=== PATIENT | female | born 1940 | race Caucasian/White ===

== ENCOUNTER 2021-08-20 09:26 | Outpatient (REF) | payer MEDICARE, SELFPAY ==
--- NOTE | 2021-08-20 12:30 | MHC.AU.AEV ---
Adult Audiological Evaluation Date of Visit: 08/20/21 Reason for Appointment: Patient has been experiencing gradually increasing hearing difficulty over the last few years. She has experienced difficulty hearing family at home as well as difficulty hearing in noisier settings. She has been using a set of hearing instruments (likely personal amplifiers based on description) but does not feel they have been meeting her needs. Does patient feel they have a hearing loss?: Yes If Yes, Which Ear?: Both Ears When Was Hearing Difficulty First Noticed?: Over the past few years Hearing Handicap Inventory Does a hearing problem cause you to feel embarrassed when meeting new people?: Sometimes Does a hearing problem cause you to feel frustrated when talking to members of your family?: Sometimes Do you have difficulty when someone speaks in a whisper?: Yes Do you feel handicapped by a hearing problem?: Sometimes Does a hearing problem cause you difficulty when visiting friends, relatives, or neighbors?: Sometimes Does a hearing problem cause you to attend congregational service services less often than you would like?: Sometimes Does a hearing problem cause you to have arguments with family members?: Sometimes Does a hearing problem cause you difficulty when listening to TV or radio?: Yes Do you feel that any difficult with your hearing limits or hampers your personal or social life?: Yes Does a hearing problem cause you difficulty when in a restaurants with relatives or friends?: Yes HHIE SCORE: 28 Based on HHIE score, patient has: Severe perceived hearing handicap Ear History: Ear Deformity: None Reported Recent Ear Drainage: None Reported Recent Ear Pain: None Reported Family History of Hearing Loss?: Yes: Mother Recent Ear Infections: None Reported Ear Infections in Childhood: None Reported History of Ear Wax Buildup: None Reported Previous Ear Surgery: None Reported Bothersome Tinnitus/Ringing/Noises in Ears: None Reported Ear used on the phone: Right Ear Blocked/Full Sensation in Ear(s): None Reported History of occupational noise exposure?: No History: No Medical History: Medical History: Breast Cancer in 2018- Was treated surgically, no chemotherapy or radiation needed. Hypertension. Chronic Kidney Disease. Otoscopy: Right Ear: Unremarkable Left Ear: Unremarkable Tympanometry: Tympanometry performed due to: To assess integrity of the middle ear system Right Ear: Normal Middle Ear System (Type A) Left Ear: Normal Middle Ear System (Type A) Hearing Evaluation: Transducer(s) Used: Insert Earphones Method: Conventional Audiometry Stimuli Used: Pure Tones Right Ear: Description of Hearing: Moderate to moderately-severe sensorineural hearing loss Left Ear: Description of Hearing: Moderate to moderately-severe sensorineural hearing loss Speech Recognition Threshold (SRT): Method Used: Recorded Lists Stimuli Used: Spondee Words Right Ear: 50 dBHL Left Ear: 45 dBHL Word Discrimination: Method: Recorded Lists Word Lists Used:: W-22 Right Ear: 88% at 90 dBHL Left Ear: 68% at 85 dBHL Most Comfortable Level (MCL): Right Ear: 90 dBHL Left Ear: 85 dBHL QuickSIN: 7 dB SNR Loss, which suggests mild-moderate difficulty listening in noise Interpretation of Results: Patient presents with moderate to moderately-severe sensorineural hearing loss. Patients with this degree of hearing loss likely have difficulty understanding speech at normal conversational volumes. Sounds that may be particularly difficult to hear include /s/, /sh/, /th/, /f/, /k/, /p/, /h/, /ch/, /z/, and /v/. This can lead to misunderstandings (ex. the words mouth and mouse may sound similar). It is likely more difficult to hear in the presence of background noise or if the person talking is not directly in front of the listener. Recommendations: Audiological re-evaluation in one year. Patient reports that she purchased a set of hearing instruments in the mail from a company in [place]. Patient never had to submit a hearing test to this company or do a screening before receiving them, which suggests they are likely personal amplifiers rather than hearing aids. She does not feel they have been meeting her needs. The patient is not a good candidate for personal amplifiers or [id number]-[id number] hearing aids, as those are intended for people with mild to moderate hearing loss. Her moderate to moderately-severe hearing loss falls outside of this range. If the device is not able to amplify sound loud enough to cover a moderate/moderately-severe hearing loss, then it may be blocking the ear more than it is helping. Patient believes her insurance may have hearing aid benefits. It is recommended that the patient contact her insurance company to inquire about hearing aid benefits or discount programs. They would also be able to help locate a clinic that accepts their benefits. At this time, our clinic is unable to accept hearing aid benefits from her insurance. Diagnosis: Primary Diagnosis: H90.3 Bilateral Sensorineural Hearing Loss Signature: Provider: Edmund Moody, CCC-A
== END 2021-08-20 09:27 | disposition home or self-care (01) ==
LOC: HO.SH 09:26
PROVIDERS: Visit Provider Internal Medicine
DX: H90.3 Sensorineural hearing loss, bilateral (principal)
CPT/HCPCS: 92557; 92567

== ENCOUNTER 2022-02-06 10:01 | Outpatient (REF) | payer MEDICARE, SELFPAY ==
[2022-02-06 11:37] LABS: Appearance Urine HAZY; Color Urine YELLOW; Glucose Urine UA NEG (NEG); Leukocyte Esterase Urine 1+ (NEG); Nitrite Urine NEG (NEG); PH 5.5 (5.0-8.0); Specific Gravity - Urine >= 1.030 (1.005-1.025); Urine Blood NEG (NEG); Urine Ketones 5 MG/DL (NEG); Urine Protein TRACE MG/DL (NEG-TRACE)
[2022-02-06 11:37] LABS: Hematocrit 40.2 % (37.0-47.0); Hemoglobin 13.3 g/dl (12.0-16.0); Mean Corpuscular HGB Conc 33.1 g/dl (31.0-35.0); Mean Corpuscular Hemoglobin 31.2 pg (27.0-33.0); Mean Corpuscular Volume 94.4 fL (80.0-98.0); Mean Platelet Volume 10.2 fL (9.4-12.3); Platelet Count 285 X10*3/uL (160-400); Red Blood Count 4.26 X10*6/uL (4.20-5.50); Red Cell Distribution Width 12.9 % (11.0-16.0); White Blood Count 7.4 X10*3/uL (4.8-10.8)
[2022-02-06 12:20] LABS: Mucus Urine 2+ /LPF; Squamous Epithelial Cell Urine 1+ /LPF
[2022-02-06 12:21] LABS: Calcium Oxalate Crystals Urine 1+ /LPF; RBC Urine 0-2 /HPF (0)
[2022-02-06 12:22] LABS: TSH reflex Free T4 1.56 uIU/mL (0.32-4.0)
[2022-02-06 12:26] LABS: Alanine Aminotransferase 18 U/L (0-31); Albumin Level 4.5 g/dL (3.5-5.0); Alkaline Phosphatase 92 U/L (39-117); Anion Gap 12 (12-20); Aspartate Amino Transferase 21 U/L (5-31); Bilirubin Total 1.2 mg/dL (0.0-1.0); Blood Urea Nitrogen 24 mg/dL (9-16); Calcium 9.6 mg/dL (8.4-10.2); Carbon Dioxide 26 mmol/L (22-29); Chloride 105 mmol/L (96-108); Cholesterol 179 mg/dL; Estimated Glomerular Filt Rate 56; Glucose Fasting 89 mg/dL (60-99); HDL Cholesterol 41 mg/dL; LDL Cholesterol Calculated 99 mg/dl; Potassium 4.2 mmol/L (3.3-5.1); Sodium 139 mmol/L (135-145); Total Protein 7.4 g/dL (6.5-8.0); Triglycerides 195 mg/dL
== END 2022-02-06 10:02 | disposition home or self-care (01) ==
LOC: HO.HMGCLDS 10:01
PROVIDERS: Visit Provider Internal Medicine
DX: E78.5 Hyperlipidemia, unspecified (principal); F32.9 Major depressive disorder, single episode, unspecified; I12.9 Hypertensive chronic kidney disease with stage 1 through stage 4 chronic kidney disease, or unspecified chronic kidney disease; N18.30 Chronic kidney disease, stage 3 unspecified; C50.919 Malignant neoplasm of unspecified site of unspecified female breast
CPT/HCPCS: 36415; 80053; 80061; 81001; 84443; 85027

== ENCOUNTER 2023-03-17 09:32 | Outpatient (REF) | payer MEDICARE, SELFPAY ==
[2023-03-17 11:20] LABS: MANUAL DIFF FLAG NO
[2023-03-17 11:38] LABS: Basophils Absolute Auto 0.1 X10*3/uL (0.0-0.2); Basophils Percent Auto 1.1 % (0-2); Eosinophils Absolute Auto 0.2 X10*3/uL (0.0-0.4); Eosinophils Percent Auto 2.6 % (0-4); Hematocrit 40.1 % (37.0-47.0); Hemoglobin 13.2 g/dl (12.0-16.0); Imm Gran Abs Auto 0.02 X10*3/uL (0.00-0.03); Imm Gran Pct Auto 0.3 % (0.0-0.4); Lymphocytes Absolute Auto 2.4 X10*3/uL (1.2-4.9); Lymphocytes Percent Auto 34.2 % (20-40); Mean Corpuscular HGB Conc 32.9 g/dl (31.0-35.0); Mean Corpuscular Hemoglobin 30.6 pg (27.0-33.0); Mean Platelet Volume 9.7 fL (9.4-12.3); Monocytes Absolute Auto 0.4 X10*3/uL (0.1-1.2); Neutrophils Absolute Auto 3.9 x10*3/uL (2.0-8.3); Neutrophils Percent Auto 55.8 % (45-73); Platelet Count 257 X10*3/uL (160-400); Red Blood Count 4.31 X10*6/uL (4.20-5.50); Red Cell Distribution Width 13.2 % (11.0-16.0)
[2023-03-17 11:51] LABS: Alanine Aminotransferase 17 U/L (0-31); Albumin Level 4.2 g/dL (3.5-5.0); Alkaline Phosphatase 93 U/L (39-117); Anion Gap 10 (12-20); Aspartate Amino Transferase 20 U/L (5-31); Bilirubin Total 1.2 mg/dL (0.0-1.0); Blood Urea Nitrogen 16 mg/dL (9-16); Calcium 9.2 mg/dL (8.4-10.2); Carbon Dioxide 28 mmol/L (22-29); Chloride 109 mmol/L (96-108); Cholesterol 177 mg/dL; Estimated Glomerular Filt Rate 55; Glucose Fasting 94 mg/dL (60-99); HDL Cholesterol 45 mg/dL; LDL Cholesterol Calculated 102 mg/dl; Sodium 143 mmol/L (135-145); Total Protein 6.8 g/dL (6.5-8.0); Triglycerides 152 mg/dL
[2023-03-17 12:11] LABS: TSH reflex Free T4 1.14 uIU/mL (0.32-4.0)
== END 2023-03-17 09:33 | disposition home or self-care (01) ==
LOC: HO.HMGCLDS 09:32
PROVIDERS: PCP Internal Medicine; Visit Provider Internal Medicine
DX: I12.9 Hypertensive chronic kidney disease with stage 1 through stage 4 chronic kidney disease, or unspecified chronic kidney disease (principal); E78.5 Hyperlipidemia, unspecified; N18.30 Chronic kidney disease, stage 3 unspecified; M81.0 Age-related osteoporosis without current pathological fracture
CPT/HCPCS: 36415; 80053; 80061; 84443; 85025

== ENCOUNTER 2024-03-20 07:42 | Outpatient (REF) | payer MEDICARE, SELFPAY ==
[2024-03-20 11:26] LABS: Basophils Absolute Auto 0.1 X10*3/uL (0.0-0.2); Basophils Percent Auto 1.1 % (0-2); Eosinophils Absolute Auto 0.3 X10*3/uL (0.0-0.4); Eosinophils Percent Auto 3.8 % (0-4); Hematocrit 37.9 % (37.0-47.0); Hemoglobin 12.5 g/dl (12.0-16.0); Imm Gran Abs Auto 0.02 X10*3/uL (0.00-0.03); Imm Gran Pct Auto 0.2 % (0.0-0.4); Lymphocytes Absolute Auto 2.6 X10*3/uL (1.2-4.9); Lymphocytes Percent Auto 31.5 % (20-40); MANUAL DIFF FLAG NO; Mean Corpuscular Hemoglobin 31.3 pg (27.0-33.0); Mean Corpuscular Volume 94.8 fL (80.0-98.0); Monocytes Absolute Auto 0.6 X10*3/uL (0.1-1.2); Neutrophils Absolute Auto 4.7 x10*3/uL (2.0-8.3); Neutrophils Percent Auto 56.4 % (45-73); Platelet Count 234 X10*3/uL (160-400); Red Cell Distribution Width 13.2 % (11.0-16.0); White Blood Count 8.3 X10*3/uL (4.8-10.8)
[2024-03-20 12:06] LABS: Alanine Aminotransferase 16 U/L (0-31); Albumin Level 4.1 g/dL (3.5-5.0); Alkaline Phosphatase 107 U/L (39-117); Anion Gap 12 (12-20); Aspartate Amino Transferase 23 U/L (5-31); Bilirubin Total 0.8 mg/dL (0.0-1.0); Blood Urea Nitrogen 17 mg/dL (9-16); Carbon Dioxide 27 mmol/L (22-29); Chloride 107 mmol/L (96-108); Cholesterol 168 mg/dL (<200); Estimated Glomerular Filt Rate > 60; Glucose Fasting 87 mg/dL (60-99); HDL Cholesterol 43 mg/dL (>40); LDL Cholesterol Calculated 90 mg/dL (<100); Potassium 3.7 mmol/L (3.3-5.1); Sodium 142 mmol/L (135-145); Total Protein 6.8 g/dL (6.5-8.0); Triglycerides 177 mg/dL (<150)
[2024-03-20 12:24] LABS: Vitamin D 25-OH Total 58.7 ng/mL (>30)
== END 2024-03-20 07:43 | disposition home or self-care (01) ==
LOC: HO.HMGCLDS 07:42
PROVIDERS: PCP Internal Medicine; Visit Provider Internal Medicine
DX: M81.0 Age-related osteoporosis without current pathological fracture (principal); I12.9 Hypertensive chronic kidney disease with stage 1 through stage 4 chronic kidney disease, or unspecified chronic kidney disease; N18.30 Chronic kidney disease, stage 3 unspecified; E78.5 Hyperlipidemia, unspecified; E55.9 Vitamin D deficiency, unspecified
CPT/HCPCS: 36415; 80053; 80061; 82306; 85025

== ENCOUNTER 2024-03-23 08:56 | Outpatient (AMB) | payer MEDICARE, SELFPAY ==
[2024-03-23 08:58] VITALS: BP 138/66; PULSE 74; O2SAT 98; BMI 22.8
--- NOTE | 2024-03-23 08:58 | AM.OFFVISMDC ---
Intake Vital Signs 03/23/24 08:58 Height 4 ft 11 in Weight 113 lb BMI 22.8 BP 138/66 Blood Pressure Location Rt brachial Position Sitting Pulse 74 Pulse Source Pulse Oximeter Pulse Oximetry (%) 98 Oxygen Delivery Method Room Air Intake Visit Reasons: SWV [id number] Allergies lisinopril Adverse Reaction (Unknown, Verified 03/23/24 09:02) cough Medication List - Last Reconciled 03/23/24 by Christina Conner MD fluoxetine 40 mg PO DAILY omeprazole 20 mg PO DAILY simvastatin 10 mg PO DAILY telmisartan 40 mg PO DAILY HPI SWV [id number] HPI Details Initiated the conversation about Advanced Directives. Advanced Directives help? patients prepare for current and future decisions about their medical treatment? and place of care. Discussed with patient that it is a process where a patients? current condition and prognosis are reviewed, their wishes for information? regarding their illness are elicited, and likely medical dilemmas are presented? and options discussed. The form can be amended as needed, reviewed yearly and? make changes as needed IPPE/AWV ? year old presents? for her ? Annual? Wellness Visit, initial visit.? Medical / Social History Reviewed? Past Medical History ?Yes? . ? [place]? of Care / Care Team list updated ?Yes . ? Surgical/Hospitalization? History ?Yes . ? Current Medications? (including OTC and supplements) ?Yes . ? Family History ?Yes? . ? Tobacco? Control form ?Yes . ? AUDIT-C (Alcohol use) form? ?Yes . ? Illicit drug use in Social? History ?Yes . ? Current diagnosis of? depression? ?No ? Appropriate PHQ2/PHQ9? completed ?Yes . ? Data entered by ?Medical? Business Risk Consultant and reviewed by provider ? Fall Risk ? Fall? History? Have you had any falls with? injury in the past year? ?No . ? Have you had two or more? falls in the past year? ?No . ? Fall Risk Assessment: ?No? falls in the past year . ? HRA filled out by? the patient, reviewed by Provider and scanned. ? IPPE/AWV ? Balance? [place]? ?Yes . ? Tandem? walk ?Yes . ? Walk and? Turn ?Yes . ? Rise from? sit to stand ?Yes . ?Vision? Corrective? lens ?Yes ? Vision? screen ? Up-to-date, has an appointment [] for vision? screening and glaucoma screening ?Hearing? Whisper? test ?pass .? Initiated the conversation about Advanced Directives. Advanced Directives help? patients prepare for current and future decisions about their medical treatment? and place of care. Discussed with patient that it is a process where a patients? current condition and prognosis are reviewed, their wishes for information? regarding their illness are elicited, and likely medical dilemmas are presented? and options discussed. The form can be amended as needed, reviewed yearly and? make changes as needed Written? Plan?Completed. See Patient? Documents. [facility] Medical History (Updated 03/23/24 @ 09:49 by Christina Conner MD) Annual physical exam Hearing loss HTN (hypertension) Breast cancer CKD (chronic kidney disease), stage III Arthritis Hyperlipidemia Osteoporosis Depression Surgical History History of lumpectomy of left breast Family History Brother Heart disease Sister COPD (chronic obstructive pulmonary disease) Sister No problems noted. Sister No problems noted. Son No problems noted. Daughter No problems noted. Social History (Updated 03/23/24 @ 09:49 by Christina Conner MD) Household Members Other:: lives with son Housing: House Alcohol intake: current Alcohol intake frequency: holidays/special occasions only Patient Tobacco Use Status: Never used Tobacco e-Cigarette/Vaping Use: Never Used Current occupational status: retired Cognitive needs: No Hearing needs: Yes Vision needs: Yes Questionnaire Medicare Wellness Checkup What is your age?: 78 or older What gender do you identify with?: female During the past 4 weeks, how much have you been bothered by emotional problems such as feeling anxious, depressed, irritable, sad or downhearted, and blue?: slightly During the past 4 weeks, has your physical & emotional health limited your social activities with family, friends, neighbors, or groups?: not at all During the past 4 weeks, how much bodily pain have you generally had?: no pain During the past 4 weeks, was someone available to help you if you needed & wanted help?: yes, as much as I wanted During the past 4 weeks, what was the hardest physical activity you could do for at least 2 minutes?: moderate Can you get to places out of walking distance without help? (For eg., can you travel alone on buses, taxis or drive your car?): Yes Can you go shopping for groceries or clothes without someone's help?: Yes Can you prepare your own meals?: Yes Can you do your housework without help?: Yes Because of any health problems, do you need the help of another person with your personal care needs such as eating, bathing, dressing or getting around the house?: No Can you handle your own money without help?: Yes During the past 4 weeks, how would you rate your health in general?: good During the past 4 weeks how have things been going for you?: pretty well Are you having difficulties driving your car?: no Do you always fasten your seat belt when you are in a car?: yes, usually During past 4 weeks, have you been bothered by the following: never: Falling or dizzy when standing up, Sexual problems?, Trouble eating well?, Teeth or denture problems?, Problems using the telephone? and Tiredness or fatigue? Have you fallen 2 or more times in the past year?: No Are you afraid of falling?: No Are you a smoker?: no During the past 4 weeks, how many drinks of wine, beer, or other alcoholic beverages did you have?: no alcohol at all Do you exercise for about 20 minutes 3 or more times a week?: yes, some of the time Have you been given information to help with the following?: yes: Hazards in your house that might hurt you? and yes: Keeping track of your medications? How often do you have trouble taking medicines the way you have been told to take them?: I always take medicine as prescribed How confident are you that you can control & manage most of your health problems?: very confident What is your race?: White Mini Mental State Exam (MMSE) Orientation What is the (year) (season) (date) (day) (month)?: year, season, date, day and month Where are we (state) (county) (town or city) (hospital) (floor)?: state, county, town or city, hospital/clinic and floor Registration Name of 3 unrelated objects clearly and slowly, then ask patient to repeat all 3 of them. (1st repeat determines score. Make sure they can repeat all three): object 1, object 2 and object 3 Attention & Calculation (CHOOSE ONE) Spell WORLD backwards (DLROW): 5 letters Recall Ask patient to repeat the 3 items from question #3.: object 1, object 2 and object 3 Language Show patient a wristwatch & ask what it is. Repeat for pencil.: watch and pencil Ask the patient to repeat the phrase 'No ifs, ands, or buts' after you.: correct Ask the patient to 'take a piece of paper with their right hand' 'fold paper in half' 'place paper on floor': take paper in right hand, fold paper in half and place paper on floor Print the sentence 'CLOSE YOUR EYES' on a piece. If patient actually closes eyes then score.: followed written direction Give patient a blank piece of paper & ask to write a sentence. Score if it contains a noun & verb.: sentence contains subject and verb Score Score: 29 Activity of Daily Living Bathing - sponge bath, tub bath or shower: receives no assistance (gets in/out by self, if usual bathing means Dressing - getting clothes from closets & drawers, including inner/outer garments & fasteners.: gets clothes & gets completely dressed without help Toileting - going to the 'toilet room' for urine/bowel elimination & cleaning self/arranging clothes: goes to toilet room, cleans self, arranges clothes without help Transfer: moves in & out of bed and chair without help (may use support object) Continence: controls urination/bowel movements completely by self Feeding: feeds self without help Total Score: 0 Information obtained from: patient Using telephone: independent Traveling: independent Shopping: independent Preparing meals: independent Housework: independent Taking medicine: independent Managing money: independent PHQ-9 Over the last 2 weeks, how often have you been bothered by any of the following problems? 1. Little interest or pleasure in doing things: not at all 2. Feeling down, depressed, or hopeless: not at all 3. Trouble falling or staying asleep, or sleeping too much: not at all 4. Feeling tired or having little energy: not at all 5. Poor appetite or overeating: not at all 6. Feeling bad about yourself - or that you are a failure or have let yourself or your family down: not at all 7. Trouble concentrating on things, such as reading the newspaper or watching television: not at all 8. Moving or speaking so slowly that other people could have noticed. Or the opposite - being so fidgety or restless that you have been moving around a lot more than usual: not at all 9. Thoughts that you would be better off or of hurting yourself in some way: not at all Total score: 0 Depression Screening Interpretation: Negative Depression Screening Done: Yes Source: Developed by Drs. Mk Aleman, Harini Pardo, Stoney Richards and colleagues, with an educational gabriel from [employer]. Review of Systems Const All systems reviewed & are unremarkable except as noted in HPI and below Reports no additional complaints Eyes Reports no additional complaints ENT Reports no additional complaints Card Reports no additional complaints GI Reports no additional complaints Reports no additional complaints Musc Reports no additional complaints Physical Exam Vital Signs: Last Vital Signs Pulse 74 03/23/24 08:58 BP 138/66 03/23/24 08:58 Pulse Ox 98 03/23/24 08:58 Oxygen Delivery Method Room Air 03/23/24 08:58 BMI result Body Mass Index 22.8 Const General: no acute distress HEENT Head: Yes normal to inspection Ears: hearing grossly normal bilaterally Neck Neck: Yes no lymphadenopathy and Yes supple Resp Effort & Inspection: normal respiratory effort Auscultation: clear to auscultation bilaterally Cardio Rhythm: regular rhythm Heart sounds: S1 normal heart sound present and S2 normal heart sound present GI Inspection: Yes normal to inspection Palpation (GI): Soft to palpation Percussion: Yes normal to percussion Auscultation: normal bowel sounds Extrem General: Yes no clubbing, cyanosis or edema Assessment & Plan Assessment & Plan (1) CKD (chronic kidney disease), stage III: Code(s): N18.30 - Chronic kidney disease, stage 3 unspecified Plan: Avoid nephrotoxins monitor renal function (2) HTN (hypertension): Comment: BP goal less than 130/80 Code(s): I10 - Essential (primary) hypertension Plan: Continue current medications (3) Annual physical exam: Code(s): Z00.00 - Encounter for general adult medical examination without abnormal findings Plan: Well-balanced diet regular physical activity discussed with the patient (4) Vitamin D deficiency: Code(s): E55.9 - Vitamin D deficiency, unspecified Plan: Continue vitamin-D supplement (5) Osteoporosis: Comment: s/p tx Reclast for 3-4 years at [facility] by oncology, DEXA T score -4.0 fem neck, - 2.8 AP spine 06/2023 Code(s): M81.0 - Age-related osteoporosis without current pathological fracture Plan: Follow-up with oncology (6) Fracture of pubic ramus: Comment: 07/2022 Code(s): S32.599A - Other specified fracture of unspecified pubis, initial encounter for closed fracture Plan: Continue vitamin-D and calcium supplement and follow-up with oncology for osteoporosis treatment (7) Hyperlipidemia: Code(s): E78.5 - Hyperlipidemia, unspecified Plan: Continue statin Orders: Orders Comprehensive [place]. Panel Fast 1 Year E55.9 - Vitamin D deficiency, unspecified, I10 - Essential (primary) hypertension, N18.30 - Chronic kidney disease, stage 3 unspecified, Z00.00 - Encounter for general adult medical examination without abnormal findings Vitamin D 25-OH Total 1 Year E55.9 - Vitamin D deficiency, unspecified, I10 - Essential (primary) hypertension, N18.30 - Chronic kidney disease, stage 3 unspecified, Z00.00 - Encounter for general adult medical examination without abnormal findings Complete Blood Count Auto Diff 1 Year E55.9 - Vitamin D deficiency, unspecified, I10 - Essential (primary) hypertension, N18.30 - Chronic kidney disease, stage 3 unspecified, Z00.00 - Encounter for general adult medical examination without abnormal findings Lipid Panel 1 Year E55.9 - Vitamin D deficiency, unspecified, I10 - Essential (primary) hypertension, N18.30 - Chronic kidney disease, stage 3 unspecified, Z00.00 - Encounter for general adult medical examination without abnormal findings Quality Reporting (2020) Depression/Bipolar (159/160/161/177) PHQ-9: Total score: 0 Coding Level of Care Code Medicare Subsequent (G0439) Diagnoses CKD (chronic kidney disease), stage III N18.30 HTN (hypertension) I10 Annual physical exam Z00.00 Vitamin D deficiency E55.9 Osteoporosis M81.0 Fracture of pubic ramus S32.599A Hyperlipidemia E78.5 CPT Codes Advance Care Planning - Time spent: 1-15 minutes, on File ([id number]) Advance Care Planning Advance Care Planning discussion: Completed/Scanned Forms completed: Health Care Proxy Time spent: 1-15 minutes, on File
== END 2024-03-23 09:48 | disposition home or self-care (01) ==
PROVIDERS: Visit Provider Internal Medicine
DX: Z00.00 Encounter for general adult medical examination without abnormal findings (principal); I12.9 Hypertensive chronic kidney disease with stage 1 through stage 4 chronic kidney disease, or unspecified chronic kidney disease; N18.30 Chronic kidney disease, stage 3 unspecified; S32.599A Other specified fracture of unspecified pubis, initial encounter for closed fracture; E55.9 Vitamin D deficiency, unspecified; M81.0 Age-related osteoporosis without current pathological fracture; E78.5 Hyperlipidemia, unspecified
CPT/HCPCS: 1123F; G0439

== ENCOUNTER 2024-09-22 10:02 | Outpatient (AMB) | payer MEDICARE, SELFPAY ==
--- NOTE | 2024-09-22 10:05 | A.OFFPC_ITS ---
Vital Signs 09/22/24 10:06 Height 4 ft 11 in Weight 113 lb BMI 22.8 BP 120/76 Blood Pressure Location Lt brachial Position Sitting Pulse 75 Pulse Source Pulse Oximeter Pulse Oximetry (%) 98 Oxygen Delivery Method Room Air Intake Visit Reasons: Pre-op for cataract surgery Intake Note: Pt is here today for pre op visit. Pt is having cataract surgery on 10/14/24. Allergies lisinopril Adverse Reaction (Unknown, Verified 09/22/24 10:12) cough Medication List - Last Reconciled 09/22/24 by Christina Conner MD fluoxetine 40 mg PO DAILY omeprazole 20 mg PO DAILY simvastatin 10 mg PO DAILY telmisartan 40 mg PO DAILY Tobacco use date assessed: 09/22/24 Fall risk assessment: 1 Fall in past year Last assessed Fall Risk: 09/22/24 Dental Screening Dental Screen Date: 09/22/24 Did you have a dental visit in the last 12 months?: Yes Did you have a dental problem in the last 6 months where you did not have access to dental care?: No Was dental information given to patient?: Patient has dentist HPI Pre-op for cataract surgery HPI Details Pt presents for preop for cataract surgery. HTN and hyperlipid, depression, are stable on meds. [facility] Medical History (Updated 09/22/24 @ 10:35 by Christina Conner MD) Annual physical exam Hearing loss HTN (hypertension) Breast cancer CKD (chronic kidney disease), stage III Arthritis Hyperlipidemia Osteoporosis Depression Surgical History History of lumpectomy of left breast Family History Brother Heart disease Sister COPD (chronic obstructive pulmonary disease) Sister No problems noted. Sister No problems noted. Son No problems noted. Daughter No problems noted. Social History Household Members Other:: lives with son Housing: House Alcohol intake: current Alcohol intake frequency: holidays/special occasions only Patient Tobacco Use Status: Never used Tobacco e-Cigarette/Vaping Use: Never Used service: No Current occupational status: retired Cognitive needs: No Hearing needs: Yes Vision needs: Yes Questionnaire PHQ-9 Over the last 2 weeks, how often have you been bothered by any of the following problems? 1. Little interest or pleasure in doing things: not at all 2. Feeling down, depressed, or hopeless: not at all 3. Trouble falling or staying asleep, or sleeping too much: not at all 4. Feeling tired or having little energy: not at all 5. Poor appetite or overeating: not at all 6. Feeling bad about yourself - or that you are a failure or have let yourself or your family down: not at all 7. Trouble concentrating on things, such as reading the newspaper or watching television: not at all 8. Moving or speaking so slowly that other people could have noticed. Or the opposite - being so fidgety or restless that you have been moving around a lot more than usual: not at all 9. Thoughts that you would be better off or of hurting yourself in some way: not at all Total score: 0 Depression Screening Interpretation: Negative Depression Screening Done: Yes 75084 - PHQ-9 Billing: Yes Source: Developed by Drs. Mk Aleman, Harini Pardo, Stoney Richards and colleagues, with an educational gabriel from [employer]. Thrive Questionnaire Date Thrive assessed: 09/22/24 I am a: Patient What is your living situation today?: I have a steady place to live Within the past 12 months, did the food you bought not last and you didn't have the money to get more?: Never true Within the past 12 months, did you worry whether your food would run out before you got money to buy more?: Never true Do you have trouble paying for medicines?: No Do you have trouble getting transportation to medical appointments?: No Do you have trouble paying your heating and electricity bill?: No Do you have trouble taking care of your child, family member or friend?: No Do you have trouble with day-to-day activities such as bathing, preparing meals, shopping, managing finances, etc.?: No Are you currently unemployed and looking for a job?: No Are you interested in more education?: No Please select the resources that you would like help with: None THRIVE Score: 0 AUDIT C Alcohol Use Questionnaire (AUDIT-C) 1. How often do you have a drink containing alcohol?: Monthly or less 2. How many drinks containing alcohol do you have on a typical day when you are drinking?: 1 or 2 3. How often do you have six or more drinks on one occasion?: Never Total Score: 1 ARIES-7 AMB Questionnaire ARIES-7 Date ARIES - 7 assessed: 09/22/24 Feeling nervous, anxious, or on edge: 0 = Not at all Not being able to stop or control worryin = Not at all Worrying too much about different things: 0 = Not at all Trouble relaxin = Not at all Being so restless that it is hard to sit still: 0 = Not at all Becoming easily annoyed or irritable: 0 = Not at all Feeling afraid as if something awful might happen: 0 = Not at all Total ARIES-7 score (0-4 normal; 5-9 mild; 10-14 moderate; 15-21 severe): 0 Source: Developed by Drs. Mk Aleman, Harini Pardo, Stoney Richards and colleagues, with an educational gabriel from [employer]. ARIES-7 Assessment Billing ARIES-7 Assessment Tool: ARIES-7 Assessment 32104 Review of Systems Const All systems reviewed & are unremarkable except as noted in HPI and below Reports no additional complaints Eyes Reports no additional complaints ENT Reports no additional complaints Card Reports no additional complaints Resp Reports no additional complaints GI Reports no additional complaints Physical exam (Primary Care) Vital Signs: Last Vital Signs Pulse 75 09/22/24 10:06 BP 120/76 09/22/24 10:06 Pulse Ox 98 09/22/24 10:06 Oxygen Delivery Method Room Air 09/22/24 10:06 BMI result Body Mass Index 22.8 Tobacco/Smoking Status: Tobacco use Status Tobacco use date assessed 09/22/24 09/22/24 10:14 Patient Tobacco Use Status Never used Tobacco 09/22/24 10:14 e-Cigarette/Vaping Use Never Used 09/22/24 10:05 PHQ-9: PHQ-9 Score PHQ-9: Total score 0 09/22/24 10:14 Depression Screening Interpretation: Negative Thrive Assessment: Date of Thrive Assessment Date Thrive assessed 09/22/24 09/22/24 10:14 Const General: no acute distress HENMT Head: Yes normal to inspection Face and sinus: Yes normal facial exam Eyes General: appearance normal, both eyes and all related structures Neck Neck: Yes supple Resp Effort & Inspection: normal respiratory effort Auscultation: clear to auscultation bilaterally Cardio Rhythm: regular rhythm Heart sounds: S1 normal heart sound present and S2 normal heart sound present GI Inspection: Yes normal to inspection Palpation (GI): Soft to palpation Coding Level of Care Code Est Pt Level 4 (73416) Diagnoses Osteoporosis M81.0 CKD (chronic kidney disease), stage III N18.30 HTN (hypertension) I10 Cataract H26.9 Additional Codes ARIES-7 Assessment Billing - ARIES-7 Assessment Tool: ARIES-7 Assessment 64449 ([id number]) PHQ-9 - 67768 - PHQ-9 Billing: Yes ([id number]) Assessment & Plan Assessment & Plan (1) Osteoporosis: Comment: s/p tx Reclast for 3-4 years at [facility] by oncology, DEXA T score -4.0 fem neck, - 2.8 AP spine 06/2023, Fosamax started 09/2024 Code(s): M81.0 - Age-related osteoporosis without current pathological fracture Category: Medical Plan: start Fosamax, cont vit D (2) CKD (chronic kidney disease), stage III: Code(s): N18.30 - Chronic kidney disease, stage 3 unspecified Category: Medical Plan: monitor renal function (3) HTN (hypertension): Comment: BP goal less than 130/80 Code(s): I10 - Essential (primary) hypertension Category: Medical Plan: cont med (4) Cataract: Code(s): H26.9 - Unspecified cataract Category: Medical Plan: Patient is medically cleared for cataract surgery Medications: New alendronate (Fosamax) 70 mg PO QWEEK 14 tabs 3RF alendronate (Fosamax) 70 mg PO QWEEK 14 tabs 3RF Refilled fluoxetine 40 mg PO DAILY 90 caps 3RF omeprazole 20 mg PO DAILY 90 caps 3RF simvastatin 10 mg PO DAILY 90 tabs 3RF telmisartan 40 mg PO DAILY 90 tabs 3RF I10 - Essential (primary) hypertension
[2024-09-22 10:06] VITALS: BP 120/76; PULSE 75; O2SAT 98; BMI 22.8
== END 2024-09-22 10:40 | disposition home or self-care (01) ==
PROVIDERS: PCP Internal Medicine; Visit Provider Internal Medicine
DX: M81.0 Age-related osteoporosis without current pathological fracture (principal); N18.30 Chronic kidney disease, stage 3 unspecified; I10 Essential (primary) hypertension; H26.9 Unspecified cataract

== ENCOUNTER → 2024-09-22 10:02 | Outpatient (BNVA) | payer MEDICARE, SELFPAY | PROVIDERS: PCP Internal Medicine; Visit Provider Internal Medicine | DX: Z01.818 Encounter for other preprocedural examination (principal); H26.9 Unspecified cataract; M81.0 Age-related osteoporosis without current pathological fracture; I12.9 Hypertensive chronic kidney disease with stage 1 through stage 4 chronic kidney disease, or unspecified chronic kidney disease; N18.30 Chronic kidney disease, stage 3 unspecified | CPT/HCPCS: 96127; 99212 ==

== ENCOUNTER 2025-03-30 09:45 | Outpatient (AMB) | payer MEDICARE, SELFPAY ==
[2025-03-30 09:58] VITALS: BP 120/72; PULSE 80; RESP 18; TEMP 36.7; O2SAT 98; BMI 22.8
--- NOTE | 2025-03-30 09:58 | A.OFFVIS_ITS ---
Intake Vital Signs 03/30/25 09:58 Height 4 ft 11 in Weight 113 lb BMI 22.8 BP 120/72 Blood Pressure Location Lt brachial Position Sitting Respiration 18 Pulse 80 Pulse Source Pulse Oximeter Temp 98.1 F Temp Source Oral Pulse Oximetry (%) 98 Oxygen Delivery Method Room Air Intake Visit Reasons: SWV [id number] Allergies lisinopril Adverse Reaction (Unknown, Verified 03/30/25 10:14) cough Medication List - Last Reconciled 03/30/25 by Christina Conner MD fluoxetine 40 mg PO DAILY omeprazole 20 mg PO DAILY simvastatin 10 mg PO DAILY telmisartan 40 mg PO DAILY HPI SWV [id number] HPI Details Initiated the conversation about Advanced Directives. Advanced Directives help? patients prepare for current and future decisions about their medical treatment? and place of care. Discussed with patient that it is a p rocess where a patients? current condition and prognosis are reviewed, their wishes for information? regarding their illness are elicited, and likely medical dilemmas are presented? and options discussed. The form can be amended as needed, reviewed yearly and? make changes as needed IPPE/AWV ? year old presents? for her ? Annual? Wellness Visit, initial visit.? Medical / Social History Reviewed? Past Medical History ?Yes? . ? [place]? of Care / Care Team list updated ?Yes . ? Surgical/Hospitalization? History ?Yes . ? Current Medications? (including OTC and supplements) ?Yes . ? Family History ?Yes? . ? Tobacco? Control form ?Yes . ? AUDIT-C (Alcohol use) form? ?Yes . ? Illicit drug use in Social? History ?Yes . ? Current diagnosis of? depression? ?No ? Appropriate PHQ2/PHQ9? completed ?Yes . ? Data entered by ?Medical? Agricultural Purchasing Agent and reviewed by provider ? Fall Risk ? Fall? History? Have you had any falls with? injury in the past year? ?No . ? Have you had two or more? falls in the past year? ?No . ? Fall Risk Assessment: ?No? falls in the past year . ? HRA filled out by? the patient, reviewed by Provider and scanned. ? IPPE/AWV ? Balance? [place]? ?Yes . ? Tandem? walk ?Yes . ? Walk and? Turn ?Yes . ? Rise from? sit to stand ?Yes . ?Vision? Corrective? lens ?Yes ? Vision? screen ? Up-to-date, has an appointment [] for vision? screening and glaucoma screening ?Hearing? Whisper? test ?pass .? Initiated the conversation about Advanced Directives. Advanced Directives help? patients prepare for current and future decisions about their medical treatment? and place of care. Discussed with patient that it is a process where a patients? current condition and prognosis are reviewed, their wishes for information? regarding their illness are elicited, and likely medical dilemmas are presented? and options discussed. The form can be amended as needed, reviewed yearly and? make changes as needed Written? Plan?Completed. See Patient? Documents. [facility] Medical History (Updated 03/30/25 @ 10:49 by Christina Conner MD) Annual physical exam Hearing loss HTN (hypertension) Breast cancer CKD (chronic kidney disease), stage III Arthritis Hyperlipidemia Osteoporosis Depression Surgical History History of lumpectomy of left breast Family History Brother Heart disease Sister COPD (chronic obstructive pulmonary disease) Sister No problems noted. Sister No problems noted. Son No problems noted. Daughter No problems noted. Social History Household Members Other:: lives with son Housing: House Alcohol intake: current Alcohol intake frequency: holidays/special occasions only Patient Tobacco Use Status: Never used Tobacco e-Cigarette/Vaping Use: Never Used service: No Current occupational status: retired Cognitive needs: No Hearing needs: Yes Vision needs: Yes Questionnaire Medicare Wellness Checkup What is your age?: 78 or older What gender do you identify with?: female During the past 4 weeks, how much have you been bothered by emotional problems such as feeling anxious, depressed, irritable, sad or downhearted, and blue?: slightly During the past 4 weeks, has your physical & emotional health limited your social activities with family, friends, neighbors, or groups?: not at all During the past 4 weeks, how much bodily pain have you generally had?: no pain During the past 4 weeks, was someone available to help you if you needed & wanted help?: yes, as much as I wanted During the past 4 weeks, what was the hardest physical activity you could do for at least 2 minutes?: moderate Can you get to places out of walking distance without help? (For eg., can you travel alone on buses, taxis or drive your car?): Yes Can you go shopping for groceries or clothes without someone's help?: Yes Can you prepare your own meals?: Yes Can you do your housework without help?: Yes Because of any health problems, do you need the help of another person with your personal care needs such as eating, bathing, dressing or getting around the house?: No Can you handle your own money without help?: Yes During the past 4 weeks, how would you rate your health in general?: good During the past 4 weeks how have things been going for you?: pretty well Are you having difficulties driving your car?: no Do you always fasten your seat belt when you are in a car?: yes, usually During past 4 weeks, have you been bothered by the following: never: Falling or dizzy when standing up, Sexual problems?, Trouble eating well?, Teeth or denture problems? and Problems using the telephone? and sometimes: Tiredness or fatigue? Have you fallen 2 or more times in the past year?: No Are you afraid of falling?: No Are you a smoker?: no During the past 4 weeks, how many drinks of wine, beer, or other alcoholic beverages did you have?: no alcohol at all Do you exercise for about 20 minutes 3 or more times a week?: no, I usually do not exercise this much Have you been given information to help with the following?: yes: Hazards in your house that might hurt you? and yes: Keeping track of your medications? How often do you have trouble taking medicines the way you have been told to take them?: I always take medicine as prescribed How confident are you that you can control & manage most of your health problems?: very confident What is your race?: White Mini Mental State Exam (MMSE) Orientation What is the (year) (season) (date) (day) (month)?: year, season, date, day and month Where are we (state) (county) (town or city) (hospital) (floor)?: state, county, town or city, hospital/clinic and floor Registration Name of 3 unrelated objects clearly and slowly, then ask patient to repeat all 3 of them. (1st repeat determines score. Make sure they can repeat all three): object 1, object 2 and object 3 Attention & Calculation (CHOOSE ONE) Spell WORLD backwards (DLROW): 5 letters Recall Ask patient to repeat the 3 items from question #3.: object 1, object 2 and object 3 Language Show patient a wristwatch & ask what it is. Repeat for pencil.: watch and pencil Ask the patient to repeat the phrase 'No ifs, ands, or buts' after you.: correct Ask the patient to 'take a piece of paper with their right hand' 'fold paper in half' 'place paper on floor': take paper in right hand, fold paper in half and place paper on floor Print the sentence 'CLOSE YOUR EYES' on a piece. If patient actually closes eyes then score.: followed written direction Give patient a blank piece of paper & ask to write a sentence. Score if it contains a noun & verb.: sentence contains subject and verb Score Score: 29 PHQ-9 Over the last 2 weeks, how often have you been bothered by any of the following problems? 1. Little interest or pleasure in doing things: several days 2. Feeling down, depressed, or hopeless: several days 3. Trouble falling or staying asleep, or sleeping too much: not at all 4. Feeling tired or having little energy: several days 5. Poor appetite or overeating: not at all 6. Feeling bad about yourself - or that you are a failure or have let yourself or your family down: not at all 7. Trouble concentrating on things, such as reading the newspaper or watching television: not at all 8. Moving or speaking so slowly that other people could have noticed. Or the opposite - being so fidgety or restless that you have been moving around a lot more than usual: not at all 9. Thoughts that you would be better off or of hurting yourself in some way: not at all Total score: 3 Depression Screening Interpretation: Negative Depression Screening Done: Yes 30498 - PHQ-9 Billing: Yes Source: Developed by Drs. Mk Aleman, Harini Pardo, Stoney Richards and colleagues, with an educational gabriel from [employer]. Review of Systems Const All systems reviewed & are unremarkable except as noted in HPI and below Eyes Reports no additional complaints ENT Reports no additional complaints Card Reports no additional complaints Resp Reports no additional complaints GI Reports no additional complaints Reports no additional complaints Physical Exam Vital Signs: Last Vital Signs Temp 98.1 F 03/30/25 09:58 Pulse 80 03/30/25 09:58 Resp 18 03/30/25 09:58 BP 120/72 03/30/25 09:58 Pulse Ox 98 03/30/25 09:58 Oxygen Delivery Method Room Air 03/30/25 09:58 BMI result Body Mass Index 22.8 Const General: no acute distress HEENT Head: Yes normal to inspection Eyes General: appearance normal, both eyes and all related structures Neck Neck: Yes no lymphadenopathy and Yes supple Resp Effort & Inspection: normal respiratory effort Auscultation: clear to auscultation bilaterally Cardio Rhythm: regular rhythm Heart sounds: S1 normal heart sound present and S2 normal heart sound present GI Inspection: Yes normal to inspection Palpation (GI): Soft to palpation Percussion: Yes normal to percussion Auscultation: normal bowel sounds Extrem General: Yes no clubbing, cyanosis or edema Immunizations pneumoc 20-edy conj-dip cr(PF) 0.5 mL IM syringe Performing Provider: Christina Conner MD Performing Location: [facility] [place] [facility] Administered by: CECIL Hurtado on 03/30/25 10:37 Dose Route Admin Location Dispensed Lot Number Expiration Date NDC Spine Surgeon 0.5 mL IM Left Deltoid 0.5 mL [id number] 01/31/26 4169-8255-56 [employer] VIS Given Date VIS Provided VIS Publication Date 03/30/25 Single Vaccine 21 Eligibility Eligibility Date Funding Source Not [facility] Eligible 03/30/25 Private Assessment & Plan Assessment & Plan (1) Hyperlipidemia: Code(s): E78.5 - Hyperlipidemia, unspecified Plan: cont statin (2) CKD (chronic kidney disease), stage III: Code(s): N18.30 - Chronic kidney disease, stage 3 unspecified Plan: Monitor renal function avoid nephrotoxins (3) HTN (hypertension): Comment: BP goal less than 130/80 Code(s): I10 - Essential (primary) hypertension Plan: Continue current medication (4) Vitamin D deficiency: Code(s): E55.9 - Vitamin D deficiency, unspecified Plan: Continue vitamin-D supplement (5) Osteoporosis: Comment: s/p tx Reclast for 3-4 years at [facility] by oncology, DEXA T score -4.0 fem neck, - 2.8 AP spine 06/2023, patient declined treatment 03/2025 Code(s): M81.0 - Age-related osteoporosis without current pathological fracture Plan: Continue vitamin-D supplement and weight-bearing exercise Orders: Orders Pneumococcal 20 Immunization Today Z23 - Encounter for immunization Vitamin D 25-OH Total 1 Year E55.9 - Vitamin D deficiency, unspecified, E78.5 - Hyperlipidemia, unspecified, I10 - Essential (primary) hypertension, N18.30 - Chronic kidney disease, stage 3 unspecified Vitamin B12 and Folate 1 Year E55.9 - Vitamin D deficiency, unspecified, E78.5 - Hyperlipidemia, unspecified, I10 - Essential (primary) hypertension, N18.30 - Chronic kidney disease, stage 3 unspecified Comprehensive [place]. Panel Fast 1 Year E55.9 - Vitamin D deficiency, unspecified, E78.5 - Hyperlipidemia, unspecified, I10 - Essential (primary) hypertension, N18.30 - Chronic kidney disease, stage 3 unspecified Complete Blood Count Auto Diff 1 Year E55.9 - Vitamin D deficiency, unspecified, E78.5 - Hyperlipidemia, unspecified, I10 - Essential (primary) hypertension, N18.30 - Chronic kidney disease, stage 3 unspecified TSH reflex Free T4 1 Year E55.9 - Vitamin D deficiency, unspecified, E78.5 - Hyperlipidemia, unspecified, I10 - Essential (primary) hypertension, N18.30 - Chronic kidney disease, stage 3 unspecified Lipid Panel 1 Year E55.9 - Vitamin D deficiency, unspecified, E78.5 - Hyperlipidemia, unspecified, I10 - Essential (primary) hypertension, N18.30 - Chronic kidney disease, stage 3 unspecified Medications: Refilled simvastatin 10 mg PO DAILY 90 tabs 3RF fluoxetine 40 mg PO DAILY 90 caps 3RF omeprazole 20 mg PO DAILY 90 caps 3RF telmisartan 40 mg PO DAILY 90 tabs 3RF I10 - Essential (primary) hypertension Quality Reporting (2019) Depression/Bipolar (159/160/161/177) PHQ-9: Total score: 3 Coding Level of Care Code Medicare Subsequent (G0439) Diagnoses Hyperlipidemia E78.5 CKD (chronic kidney disease), stage III N18.30 HTN (hypertension) I10 Vitamin D deficiency E55.9 Osteoporosis M81.0 CPT Codes Advance Care Planning - Advance Care Planning discussion: On file, no changes ([id number]) Advance Care Planning - Time spent: 1-15 minutes, on File ([id number]) Additional Codes PHQ-9 - 68498 - PHQ-9 Billing: Yes ([id number]) Advance Care Planning Advance Care Planning discussion: On file, no changes Forms completed: Health Care Proxy Time spent: 1-15 minutes, on File Did not discuss due to Cultural/Spiritual beliefs: Yes
--- OUTSIDE RECORDS SUMMARY | 2025-03-30 10:29 | XMS_ITS | Clinical Summary ---
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 Name Role Phone Unavailable Primary Care Provider Unavailabl e Social History Tobacco Use Types Packs/Day Years Used Date Smoking Tobacco: Never Assessed Comments Unknown Sex and Gender Information Value Date Recorded Sex Assigned at Not on file Legal Sex Female 7:02 PM EST Gender Identity Not on file Sexual Orientation Not on file Plan of Treatment Health Maintenance Due Date Last Done Comments DTaP,Tdap,and Td Vaccines (1 - Tdap) 1959 Zoster Vaccines (1 of 2) 1959 Pneumococcal Vaccine: 50+ Years (2 of 2 - PCV) 07/09/2019 07/09/2018 Depression Screening 10/05/2022 Falls Risk Assessment 10/05/2022 Medicare Annual Wellness Visit 10/05/2022 Osteoporosis Screening (Bone Density Screening) 10/05/2022 Social Influencers of Health Screening 10/05/2022 COVID-19 Vaccine ( season) 2024 09/03/2023, 09/06/2022, 08/31/2021, Additional history exists Hypertension/CHF/CAD Annual BMP Blood Test 03/24/2026 03/24/2025 Cholesterol Screening (Lipid Panel) 03/24/2030 03/24/2025 RSV Immunization Adult Patients Completed 09/03/2023 Influenza Vaccine Completed 07/29/2024, , 09/06/2022, Additional history exists HIB Vaccines Aged Out No longer eligi ble based on patient's age to complete this topic HPV Vaccines Aged Out No longer eligi ble based on patient's age to complete this topic Hepatitis A Vaccines Aged Out No long er eligible based on patient's age to complete this topic Hepatitis B Vaccines Aged Out No long er eligible based on patient's age to complete this topic IPV Vaccines Aged Out No longer eligi ble based on patient's age to complete this topic MMR Vaccines Aged Out No longer eligi ble based on patient's age to complete this topic Meningococcal ACWY Vaccine Aged Out N o longer eligible based on patient's age to complete this topic Meningococcal B Vaccine Aged Out No l onger eligible based on patient's age to complete this topic RSV Immunization Patients Under 20 months Aged Out No longer eligible based on patient's age to complete this topic Varicella Vaccines Aged Out No longer eligible based on patient's age to complete this topic Procedures Procedure Name Priority Date/Time Associated Diagnosis Comments CBC WITH AUTO DIFFERENTIAL Routine 03/24/2025 9:40 AM EDT Avitaminosis D Chronic kidney disease, stage III (moderate) (CMS/HCC V24, CMS/HCC V28) Essential hypertension, malignant 1 minute score 0 COMPREHENSIVE METABOLIC PANEL Routine 03/24/2025 9:40 AM EDT Avitaminosis D Chronic kidney disease, stage III (moderate) (CMS/HCC V24, CMS/HCC V28) Essential hypertension, malignant 1 minute score 0 VITAMIN D 25 HYDROXY Routine 03/24/2025 9:40 AM EDT Avitaminosis D Chronic kidney disease, stage III (moderate) (CMS/HCC V24, CMS/HCC V28) Essential hypertension, malignant 1 minute score 0 CBC AND DIFFERENTIAL Routine 03/24/2025 9:40 AM EDT Avitaminosis D Chronic kidney disease, stage III (moderate) (CMS/HCC V24, CMS/HCC V28) Essential hypertension, malignant 1 minute score 0 LIPID PANEL WITH REFLEX TO DIRECT LDL Routine 03/24/2025 9:40 AM EDT Avitaminosis D Chronic kidney disease, stage III (moderate) (CMS/HCC V24, CMS/HCC V28) Essential hypertension, malignant 1 minute score 0 from Last 3 Months Results * Lipid panel with reflex to direct LDL (03/24/2025 9:40 AM EDT) Cholesterol 164 0 - 200 mg/dL LAB CHEMISTRY METHOD 03/24/2025 4:43 PM EDT [facility] Triglycerides 141 0 - 150 mg/dL LAB CHEMISTRY METHOD 03/24/2025 4:43 PM EDT [facility] HDL 47 >=40 mg/dL LAB CHEMISTRY METHOD 03/24/2025 4:43 PM EDT [facility] LDL Calculated 89 0 - 100 mg/dL LAB CHEMISTRY METHOD 03/24/2025 4:43 PM EDT [facility] VLDL Cholesterol Brandon 28.2 mg/dL LAB CHEMISTRY METHOD 03/24/2025 4:43 PM EDT [facility] Non HDL Chol. (LDL+VLDL) 117 <145 mg/dL LAB CHEMISTRY METHOD 03/24/2025 4:43 PM EDT [facility] Chol/HDL Ratio 3.5 0.0 - 4.4 LAB CHEMISTRY METHOD 03/24/2025 4:43 PM EDT [facility] Blood Venous blood specimen / Unknown Venipuncture / Unknown 03/24/2025 9:40 AM EDT 03/24/2025 9:40 AM EDT us Christina Conner MD LAB BLOOD ORDERABLES Final Resu lt [facility] [address] [place] [address], * CBC auto differential (03/24/2025 9:40 AM EDT) Pathologist [facility] WBC 7.3 4.8 - 10.8 K/mcL LAB HEMETOLOGY METHOD 03/24/2025 2:23 PM EDT [facility] RBC 4.40 3.80 - 4.80 M/mcL LAB [facility]OLOG[facility] Hemoglobin 13.7 11.5 - 16.0 g/dL LAB HEMETOLOGY METHOD 03/24/2025 2:23 PM T [facility] Hematocrit 42.8 35.0 - 47.0 % LAB HEMETOLOGY METHOD 03/24/2025 2:23 PM [facility] MCV 96.4 79.0 - 98.0 FL LAB HEMETOLOGY METHOD 03/24/2025 2:23 PM [facility] MCH 30.9 27.0 - 32.0 pcg LAB HEMETOLOGY METHOD 03/24/2025 2:23 PM [facility] MCHC 32.0 32.0 - 37.0 g/dL LAB HEMETOLOGY METHOD 03/24/2025 2:23 PM [facility] RDW 13.0 11.0 - 15.0 % LAB HEMETOLOGY METHOD 03/24/2025 2:23 PM [facility] Platelets 280 130 - 400 K/mcL LAB HEMETOLOGY METHOD 03/24/2025 2:23 PM [facility] MPV 10.1 7.0 - 11.0 FL LAB HEMETOLOGY METHOD 03/24/2025 2:23 PM [facility] NRBC 0.0 <1.0 % LAB HEMETOLOGY METHOD 03/24/2025 2:23 PM [facility] NRBC Absolute 0.00 <0.10 K/mcL LAB HEMETOLOGY METHOD 03/24/2025 2:23 PM [facility] Neutrophils Relative 57.9 % LAB HEMETOLOGY METHOD [facility] Lymphocytes Relative 30.6 % LAB HEMETOLOGY METHOD 03/24/2025 2:23 PM [facility] Monocytes Relative 6.9 % LAB HEMETOLOGY METHOD 03/24/2025 2:23 PM [facility] Eosinophils Relative 3.2 % LAB HEMETOLOGY METHOD 03/24/2025 2:23 PM EDT [facility] Basophils Relative 1.1 % LAB HEMETOLOGY METHOD 03/24/2025 2:23 PM EDT [facility] Immature Granulocytes Relative 0.3 % LAB HEMETOLOGY METHOD 03/24/2025 2:23 PM EDT [facility] Neutrophils Absolute 4.21 1.50 - 7.00 K/mcL LAB HEMETOLOGY METHOD 03/24/2025 2:23 PM EDT [facility] Lymphocytes Absolute 2.22 1.00 - 5.00 K/mcL LAB HEMETOLOGY METHOD 03/24/2025 2:23 PM EDT [facility] Monocytes Absolute 0.50 0.20 - 1.00 K/mcL LAB HEMETOLOGY METHOD 03/24/2025 2:23 PM EDT [facility] Eosinophils Absolute 0.23 0.00 - 0.50 K/mcL LAB HEMETOLOGY METHOD 03/24/2025 2:23 PM EDT [facility] Basophils Absolute 0.08 0.00 - 0.20 K/mcL LAB HEMETOLOGY METHOD 03/24/2025 2:23 PM EDT [facility] Immature Granulocytes Absolute 0.02 0.00 - 0.03 K/mcL LAB HEMETOLOGY METHOD 03/24/2025 2:23 PM EDT [facility] Blood Venous blood specimen / Unknown Venipuncture / Unknown 03/24/2025 9:40 AM EDT 03/24/2025 9:40 AM EDT us Christina Conner MD LAB BLOOD ORDERABLES Final Resu lt [facility] [address] [place] [address], * Vitamin D 25 hydroxy (03/24/2025 9:40 AM EDT) Pathologist [facility] Vit D, 25-Hydroxy 44.0 30.0 - 80.0 ng/mL LAB CHEMISTRY METHOD 03/24/2025 5:20 PM [facility] Blood Venous blood specimen / Unknown Venipuncture / Unknown 03/24/2025 9:40 AM EDT 03/24/2025 9:40 AM EDT us Christina Conner MD LAB BLOOD ORDERABLES Final Resu lt [facility] [address] [place] [address], * (ABNORMAL) Comprehensive metabolic panel (03/24/2025 9:40 AM EDT) [facility] Sodium 142 133 - 145 mmol/L LAB CHEMISTRY METHOD 03/24/2025 4:43 PM [facility] Potassium 4.3 3.5 - 5.5 mmol/L LAB CHEMISTRY METHOD 03/24/2025 4:43 PM [facility] Chloride 109 96 - 110 mmol/L LAB CHEMISTRY METHOD 03/24/2025 4:43 PM [facility] CO2 28 21 - 32 mmol/L LAB CHEMISTRY METHOD 03/24/2025 4:43 PM [facility] Anion Gap 5 3 - 11 LAB CHEMISTRY METHOD 03/24/2025 4:43 PM [facility] Glucose 94 70 - 100 mg/dL LAB CHEMISTRY METHOD 03/24/2025 4:43 PM [facility] BUN 16 5 - 25 mg/dL LAB CHEMISTRY METHOD 03/24/2025 4:43 PM [facility] Creatinine 1.02 0.50 - 1.10 mg/dL LAB CHEMISTRY METHOD 03/24/2025 4:43 PM [facility] eGFR 54(L) >=60 mL/min/1. 73m2 LAB CHEMISTRY METHOD 03/24/2025 4:43 PM EDT [facility] Comment:Calculation based on the Chronic Kidney Disease Epidemiology Collaboration (CKD-EPI) equation refit without adjustment for race. BUN/Creatinine Ratio 15.7 LAB CHEMISTRY METHOD 03/24/2025 4:43 PM T [facility] Calcium 9.1 8.5 - 10.5 mg/dL LAB CHEMISTRY METHOD 03/24/2025 4:43 PM EDT [facility] AST (SGOT) 21 10 - 42 unit/L LAB CHEMISTRY METHOD 03/24/2025 4:43 PM [facility] ALT (SGPT) 23 10 - 60 unit/L LAB CHEMISTRY METHOD 03/24/2025 4:43 PM [facility] Alkaline Phosphatase 114 42 - 121 unit/L LAB CHEMISTRY METHOD 03/24/2025 4:43 PM [facility] Total Protein 7.1 6.0 - 8.0 g/dL LAB CHEMISTRY METHOD 03/24/2025 4:43 PM [facility] Albumin 3.8 3.2 - 5.0 g/dL LAB CHEMISTRY METHOD 03/24/2025 4:43 PM [facility] Total Bilirubin 0.9 0.0 - 1.4 mg/dL LAB CHEMISTRY METHOD 03/24/2025 4:43 PM [facility] Blood Venous blood specimen / Unknown Venipuncture / Unknown 03/24/2025 9:40 AM EDT 03/24/2025 9:40 AM EDT us Christina Conner MD LAB BLOOD ORDERABLES Final Resu lt [facility] [address] [place] [address], from Last 3 Months Insurance [employer] - [place] MEDICARE ADVANTAGE Advance Directives Documents on File Type Date Recorded 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
== END 2025-03-30 10:40 | disposition home or self-care (01) ==
LOC: HO.HMCC 09:46
PROVIDERS: PCP Internal Medicine; Visit Provider Internal Medicine
DX: Z00.00 Encounter for general adult medical examination without abnormal findings (principal); I12.9 Hypertensive chronic kidney disease with stage 1 through stage 4 chronic kidney disease, or unspecified chronic kidney disease; E78.5 Hyperlipidemia, unspecified; N18.30 Chronic kidney disease, stage 3 unspecified; E55.9 Vitamin D deficiency, unspecified; M81.0 Age-related osteoporosis without current pathological fracture; Z23 Encounter for immunization

== ENCOUNTER → 2025-03-30 09:45 | Outpatient (BNVA) | payer MEDICARE, SELFPAY | PROVIDERS: PCP Internal Medicine; Visit Provider Internal Medicine | DX: Z00.00 Encounter for general adult medical examination without abnormal findings (principal); Z23 Encounter for immunization; E78.5 Hyperlipidemia, unspecified; I12.9 Hypertensive chronic kidney disease with stage 1 through stage 4 chronic kidney disease, or unspecified chronic kidney disease; N18.30 Chronic kidney disease, stage 3 unspecified; E55.9 Vitamin D deficiency, unspecified; M81.0 Age-related osteoporosis without current pathological fracture; Z79.899 Other long term (current) drug therapy | CPT/HCPCS: 90471; 90677; 96127 ==